=== PATIENT | male | born 1995 | race Caucasian/White ===

== ENCOUNTER 2025-05-07 23:25 | Emergency (ER) | payer SELFPAY ==
[2025-05-07 23:35] VITALS: BP 147/98; PULSE 69; RESP 16; TEMP 36.9; O2SAT 98
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
[2025-05-08 01:19] LABS: Appearance Urine UA CLEAR; Bilirubin Urine UA NEGATIVE (NEGATIVE); Color Urine UA YELLOW; Glucose Urine UA NEGATIVE (Negative); Ketones Urine UA NEGATIVE (NEGATIVE); Leukocyte Esterase Urine UA NEGATIVE (NEGATIVE); Nitrite Urine UA NEGATIVE (Negative); Occult Blood Urine UA NEGATIVE (Negative); Protein Urine UA NEGATIVE (Negative); Specific Gravity Urine UA >=1.030 (1.000-1.035); Urobilinogen Urine UA 0.2 E.U./dL (0.2)
[2025-05-08 01:22] LABS: UR Morphine/Opiate cutoff 300 Negative (Negative); Ur Creatinine Normal (Normal); Ur Specific Gravity Normal (Normal); Urine Amphetamines Negative (Negative); Urine Barbiturates Negative (Negative); Urine Benzodiazepines Negative (Negative); Urine Cocaine Negative (Negative); Urine MDMA Negative (Negative); Urine Methadone Negative (Negative); Urine Methamphetamines Negative (Negative); Urine Oxycodone Negative (Negative); Urine Phencyclidine Negative (Negative); Urine Tetrahydrocannabinol Positive (Negative); Urine Tricyclic Antidepressant Negative (Negative); Urine pH Normal (Normal)
[2025-05-08 01:24] LABS: Bacteria Urine None Seen; Culture Indicated Urine Cult Not Indicated; Mucus Urine 1+ (Negative); RBC Urine 0-1/HPF (0-5/HPF); Squamous Epithelial Cell Urine 0-1 /HPF (0-5/HPF); Urine Volume 10mL (spun); WBC Urine None Seen (0-5/HPF)
[2025-05-08 01:25] LABS: Add Manual Diff / Slide Review NO; Basophils Absolute Auto 0 /uL (0-100); Basophils Percent Auto 0.7 % (0-2); Eosinophils Absolute Auto 100 /uL (0-450); Eosinophils Percent Auto 0.8 % (2-4); Hematocrit 46.1 % (41-53); Hemoglobin 16.3 g/dL (13.5-17.5); Lymphocytes Absolute Auto 1600 /uL (1100-4500); Lymphocytes Percent Auto 23.2 % (25-40); Mean Corpuscular HGB Conc 35.4 % (30-36); Mean Corpuscular Hemoglobin 31.8 PG (26-34); Mean Corpuscular Volume 89.9 fL (80-100); Monocytes Absolute Auto 600 /uL (0-900); Monocytes Percent Auto 8.5 % (3-14); Neutrophils Absolute Auto 4700 /uL (1500-7000); Neutrophils Percent Auto 66.8 % (50-75); Platelet Count 246 X10^3/uL (150-400); Red Blood Cell Count 5.13 X10^6/uL (4.5-5.9); Red Cell Distribution Width 13.7 % (11.6-14.8)
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
[2025-05-08 01:39] LABS: Alanine Aminotransferase 18 IU/L (<50); Albumin 5.1 g/dL (3.5-5.0); Alkaline Phosphatase 34 U/L (38-126); Aspartate Aminotransferase 24 IU/L (17-59); BUN Creatinine Ratio 17.6 (6-22); Bilirubin Total 0.7 mg/dL (0.2-1.3); Blood Urea Nitrogen 15 mg/dL (9-20); Calcium 9.7 mg/dL (8.4-10.2); Carbon Dioxide 27 mmol/L (22-32); Chloride 101 mmol/L (98-107); Estimated Glomerular Filt Rate > 60 mL/min (>60); Ethanol (ETOH) < 10 mg/dL (<10); Globulin 2.5 g/dL (1.7-4.1); Glucose 97 mg/dL (70-99); HEMOLYSIS < 15 (0-50); Potassium 3.7 mmol/L (3.4-5.1); Sodium 138 mmol/L (137-145); Total Protein 7.6 g/dL (6.3-8.2)
[2025-05-08 02:09] LABS: TSH w/ Reflex to FT4 2.69 uIU/mL (0.47-4.68)
[2025-05-08 08:17] VITALS: BP 139/84; PULSE 60; RESP 18; TEMP 36.5; O2SAT 99
--- NOTE | 2025-05-08 08:48 | PC.NURSE ---
offered patient breakfast, he declined i'm protesting like michelle patient states his family has taken him to court for NO contact orders. patient states his dad falling off a [place] hiking with his sister three years ago and since they have taken him to court several times. states they took over this dads estate and the judges are complicit in allowing other to forge his signature.
[2025-05-08 09:24] LABS: COVID19 -Nasal RAPID Negative (Negative)
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
--- NOTE | 2025-05-08 13:36 | PC.NURSE ---
Patient noted to be sitting cross legged on the floor in the corner of the room, by the bathroom, on top of a blanket.
--- NOTE | 2025-05-08 14:28 | PC.NURSE ---
Patient offered lunch tray at 1200 and refused, patient just now offered fluids or snacks by this RN and patient declined stating hes not eating or drinking in protest. Patient is currently sitting in chair at the bedside and writing several pages worth of notes
--- NOTE | 2025-05-08 16:29 | PC.NURSE ---
Assessment deferred at this time, patient is in room talking with DCR Monica
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
--- NOTE | 2025-05-08 16:53 | PC.NURSE ---
Safety tray delivered for dinner. Patient refused meal. Nurse advised.
--- NOTE | 2025-05-08 18:27 | CM.SWNOTE ---
AUTOMOBILE SERVICE STATION MANAGER Note Patient is evaluated by DCR Monica, Monica reaches out to LE to get contact information of siblings and is awaiting affidavits. It is reported that DCR will detain patient and patient will likely be accepted at [facility]. AUTOMOBILE SERVICE STATION MANAGER receives call from Aga ambriz at [facility] and it is reported that Dr. Kendall accepted patient for [facility] BH placement and can arrive after 1999. RN to RN [phone]. AUTOMOBILE SERVICE STATION MANAGER to set up transport, DCR to serve patient [facility] paperwork. Plan: patient to transfer via BLS to [facility] for [facility] BH hospitalization this evening. Deepika Thakkar, COMPENSATION VICE PRESIDENT
[2025-05-08 19:00] VITALS: BP 131/72; PULSE 75; RESP 18; O2SAT 97
--- NOTE | 2025-05-08 21:40 | PC.NURSE ---
Patient before being transferred to [facility] tells this RN that DCR wrote on his document that he did not want legal representation--at this point DCR has left, patient states that this is a lie, I do want an corporate associate attorney. This RN remembers the patient stating that he would like an corporate associate attorney. This RN calls [facility] RN and DCR dispatch to communicate the issue. DCR dispatch Surya will be calling [facility] to relay the information that the patient can still get an corporate associate attorney.
== END 2025-05-08 19:45 ==
PROVIDERS: Emergency Provider Emergency Medicine
DX: R45.851 Suicidal ideations (principal); R45.850 Homicidal ideations
CPT/HCPCS: 36415; 80053; 80305; 80320; 81001; 84443; 85025; 87635; 99284